=== PATIENT | female | born 1955 | race Asian ===

== ENCOUNTER → 2019-07-16 | Outpatient (CLI) | payer OTHER ==
[2019-07-20 23:14] LABS: QUANTIFERON+, Nil Value 0.18 IU/mL; QUANTIFERON+,Mitogen Value >10.00 IU/mL; QUANTIFERON, TB GOLD PLUS Positive (Negative)
== END | disposition home or self-care (01) ==
LOC: LABPV 10:03
PROVIDERS: ATTEND Family Medicine
DX: Z02.89 Encounter for other administrative examinations (principal)
CPT/HCPCS: 86480; 86592; 87491; 87591